=== PATIENT | male | born 1970 | race Hispanic/Latino ===

== ENCOUNTER 2018-02-24 08:17 | Inpatient (IN) | payer OTHER ==
[2018-02-22 12:02] LABS: BASOPHILS # (AUTO) 0.1 (0.0-0.1); BASOPHILS % 0.5 % (0.0-1.0); EOSINOPHILS # (AUTO) 0.1 (0.0-0.4); EOSINOPHILS % 0.9 % (0.0-6.0); HEMATOCRIT 46.7 % (38.2-49.6); HEMOGLOBIN 16.2 g/dL (14.0-18.0); LYMPHOCYTES # (AUTO) 3.3 (1.0-3.2); LYMPHOCYTES % 21.8 % (18.0-39.1); MEAN CORPUSCULAR HEMOGLOBIN 31.5 pg (28-32); MEAN CORPUSCULAR HGB CONC 34.7 g/dL (31-35); MEAN CORPUSCULAR VOLUME 90.7 fL (81-99); MONOCYTES # (AUTO) 0.8 (0.2-0.8); MONOCYTES % 5.3 % (4.4-11.3); NEUTROPHILS # (AUTO) 10.9 (2.1-6.9); PLATELET COUNT 368 x10e3/uL (140-360); RED BLOOD COUNT 5.15 x10e6/uL (4.3-5.7); RED CELL DISTRIBUTION WIDTH 12.4 % (11.7-14.4)
[2018-02-22 12:13] LABS: INR 1.05; PROTHROMBIN TIME 12.9 seconds (11.9-14.5)
[2018-02-22 12:21] LABS: ALANINE AMINOTRANSFERASE 24 IU/L (0-55); ALBUMIN 4.2 g/dL (3.5-5.0); ALBUMIN/GLOBULIN RATIO 1.3 (0.8-2.0); ALKALINE PHOSPHATASE 97 IU/L (40-150); ANION GAP 15.4 mmol/L (8-16); BLOOD UREA NITROGEN 13 mg/dL (7-26); BUN/CREATININE RATIO 17 (6-25); CALCIUM 10.1 mg/dL (8.4-10.2); CARBON DIOXIDE 25 mmol/L (22-29); CHLORIDE 105 mmol/L (98-107); CHOL/HDL RATIO 3.5 (3.9-4.7); CHOLESTEROL 152 MD/DL (0-199); CREATININE, SERUM 0.77 mg/dL (0.72-1.25); EST GLOMERULAR FILTRATION RATE > 60 ML/MIN (60-); GLUCOSE 104 mg/dL (74-118); HDL CHOLESTEROL 44 MG/DL (40-60); LDL CHOLESTEROL 68 MG/DL (60-130); POTASSIUM 4.4 mmol/L (3.5-5.1); SODIUM 141 mmol/L (136-145); TRIGLYCERIDES 200 MG/DL (0-149)
[2018-02-22 12:40] LABS: THYROID STIMULATING HORMONE 0.758 uIU/mL (0.350-4.940)
[~2018-02-24] VITALS: Ht 167.6 cm; Wt 70.8 kg
[2018-02-24] VITALS (26 sets, daily range): BP systolic 108–149; BP diastolic 54–77
[~2018-02-24 08:17] MED LIST: AMLODIPINE BESY10 MG PO; ASPIR 8181 MG PO; ATORVASTATIN CA20 MG PO; METFORMIN HCL500 MG PO
[2018-02-24] MEDS ORDERED: HEPARIN SOD (PORCINE) 1000 UNIT/ML 30ML ONE (09:17)
[2018-02-24] MEDS ORDERED: LIDOCAINE HCL 2% LOCAL 20 ML VIAL ONE (09:18)
[2018-02-24] MEDS ORDERED: VERAPAMIL HCL 2.5 MG/ML 2 ML VIAL ONE (09:18)
[2018-02-24] MEDS ORDERED: HEPARIN SOD/SOD CHLORIDE 2,000 ML ONE (09:18)
[2018-02-24] MEDS ORDERED: NITROGLYCERIN/D5W 200 MCG/ML 250 ML ONE (09:18)
[2018-02-24] MEDS ORDERED: IOPAMIDOL 370 MG/ML 200 ML INFUS..BTL INJ ONE (09:18)
[2018-02-24] MEDS ORDERED: ASPIRIN 325 MG TAB ONE (09:34)
[2018-02-24] MEDS ORDERED: FENTANYL CITRATE/PF 100MCG/2 ML INJ ONE (12:03)
[2018-02-24] MEDS ORDERED: MIDAZOLAM HCL 2 MG/2 ML VIAL ONE (12:03)
[2018-02-24] MEDS ORDERED: CLOPIDOGREL BISULFATE 75 MG TAB ONE ×2 (12:28→12:29)
[2018-02-24] MEDS ORDERED: DEXTROSE 50% SYRINGE 50 ML IV PRN (19:00)
[2018-02-24] MEDS ORDERED: ATORVASTATIN 40 MG TAB PO SCH ×2 (21:00)
[2018-02-24] MEDS ORDERED: INSULIN LISPRO 100 UNIT/1 ML 3ML VIAL SQ SCH (21:00)
[2018-02-24] MEDS ORDERED: ATORVASTATIN 20 MG TAB PO SCH (21:00)
[2018-02-24] MEDS: INSULIN LISPRO 100 UNIT/1 ML 3ML VIAL SQ SCH (21:09)
[2018-02-25] VITALS (17 sets, daily range): BP systolic 109–134; BP diastolic 53–79
[2018-02-25] MEDS: INSULIN LISPRO 100 UNIT/1 ML 3ML VIAL SQ SCH ×2 (08:27→11:30)
[2018-02-25] MEDS ORDERED: METOPROLOL SUCCINATE 25 MG TAB XL PO SCH ×2 (09:00)
[2018-02-25] MEDS ORDERED: CLOPIDOGREL BISULFATE 75 MG TAB PO SCH ×2 (09:00)
[2018-02-25] MEDS ORDERED: ASPIRIN 81 MG CHEW TAB PO SCH ×2 (09:00)
[2018-02-25] MEDS ORDERED: LOSARTAN POTASSIUM 25 MG TAB PO SCH ×2 (09:00)
--- NOTE | 2018-02-25 09:50 | Operative Report ---
DATE OF PROCEDURE: February 24, 2018 PROCEDURES PERFORMED 1. Left heart cardiac catheterization. 2. Selective coronary angiography. 3. Obtuse marginal drug-eluting stent percutaneous coronary intervention using a 2.25 x 12 Synergy drug-eluting stent. 4. Additional percutaneous coronary intervention to a 2nd target vessel, proximal left anterior descending, using a 2.5 x 12 Synergy drug-eluting stent. PROCEDURE INDICATIONS: Unstable angina. ESTIMATED BLOOD LOSS: Less than 15 mL. PROCEDURE COMPLICATIONS: None. PROCEDURE SUMMARY: After consent was obtained, the patient was prepped and draped in a sterile fashion. The right radial site was locally infiltrated with 2% lidocaine. Access was obtained and a 5-Slovenian outer diameter Slender sheath applied. Heparin to maintain an ACT of 250 was given, and 200 mcg of nitroglycerin was provided via the radial sheath. A TIG catheter was used for engagement of the left main and then the right coronary artery. Angiography was performed in multiple views. A pigtail catheter was used for left ventriculogram. An XB 3.5, no side hole, guide catheter, 6 Slovenian, was used for intervention. A Runthrough wire was positioned across the target lesion in the obtuse marginal and into the distal segment of the vessel. Predilatation of the obtuse marginal was performed with a 2.0 x 8 Emerge balloon to 12 atmospheres. This was followed by a 2.25 x 12 Synergy drug-eluting stent deployed across the target lesion. DIANE flow was 2 preprocedure and 3 postprocedure across the obtuse marginal. There was no flow-limiting dissection and no perforations and residual zero percent stenosis across the target obtuse marginal lesion at the end of the procedure. Attention was then redirected to the LAD. A Runthrough wire was repositioned into the distal LAD across the target lesion. Primary stenting with a 2.5 x 12 Synergy drug-eluting stent was performed to 18 atmospheres of deployment with excellent apposition. Preprocedure DIANE flow was 3. Post procedure, DIANE flow was 3. Preprocedure stenosis was 70 and postprocedure stenosis was zero. No flow-limiting dissections and no perforations. FINDINGS 1. LV pressure was 106/0 with end-diastolic pressure of 14. 2. The aortic pressure 106/63. 3. Left ventriculogram was reviewed with preserved left ventricular systolic function, no regional wall-motion abnormality, and left ventricular ejection fraction of 60% to 65%. 4. The left main is large in caliber with luminal irregularities within the LAD and circumflex. 5. The LAD is large in caliber, and the proximal segment has 70% stenosis. It gives a couple of diagonals and small septal perforators. 6. The circumflex gives a medium caliber obtuse marginal with 95% stenosis in the proximal segment and DIANE-3 flow. This was the target lesion to intervene on as described above. This segment of the circumflex was small caliber. 7. The right coronary artery is dominant. In the proximal segment, it has a 30% area of stenosis. It gives an RV marginal of small caliber and gives trivial RPDA and RPLV. CONCLUSIONS: Multivessel diffuse coronary artery disease with critical stenosis of the obtuse marginal and severe stenosis of proximal LAD, now status post proximal drug-eluting stent PCI using a 2.25 x 12 Synergy stent and drug-eluting stent PCI to the proximal LAD with a 2.5 x 12 Synergy stent with excellent angiographic results. RECOMMENDATIONS: Wean TR Band. IV fluids, aspirin, statin high potency, beta shaun, ARB, close monitoring as an outpatient. Preserved left ventricular systolic function noted on LV-gram today. Risk factor modifications including smoking cessation have been extensively discussed with the patient. Job#: [id number]
[2018-02-25] MEDS ORDERED: LOSARTAN POTASS25 MG PO (12:59)
[2018-02-25] MEDS ORDERED: PLAVIX75 MG PO (12:59)
--- NOTE | 2018-02-25 17:37 | Discharge Summary ---
Admission was 02/24/2018 under observation post PCI. ADMISSION DIAGNOSES 1. Unstable angina. 2. Hypertension. 3. Dyslipidemia. 4. Smoker. DISCHARGE DIAGNOSES 1. Unstable angina. 2. Hypertension. 3. Dyslipidemia. 4. Smoker. PROCEDURES PERFORMED: Left anterior descending drug-eluting stent percutaneous coronary intervention and obtuse marginal drug-eluting stent percutaneous coronary intervention. DISPOSITION: Discharged to home for self care. MEDICATIONS UPON DISCHARGE: Please see the medication reconciliation form. FOLLOWUP: With primary care physician in 2 weeks and with cardiology in 4 weeks. HOSPITALIZATION SUMMARY: The patient was placed in observation overnight after undergoing elective outpatient cardiac catheterization for unstable angina. He was found to have critical obtuse marginal stenosis status post drug-eluting stent PCI and a severe stenosis of proximal LAD that also underwent drug-eluting stent PCI successfully with excellent results. No complications post procedure. Dual antiplatelet therapy, statin, beta shaun and ARB all initiated. Measures discussed. EF preserved. ROSE TO MD Job#: [id number]
== END 2018-02-25 13:15 | disposition home or self-care (01) | DRG 247 ==
LOC: CATH LAB 08:17 → PACU V 16:33 → ICU 16:47
PROVIDERS: ADMIT Internal Medicine Cardiovascular Disease; ATTEND Internal Medicine Cardiovascular Disease
PROC: 027135Z Dilation of Coronary Artery, Two Arteries with Two Drug-eluting Intraluminal Devices, Percutaneous Approach (ICD-10-PCS; principal; 2018-02-25)
PROC: 4A023N7 Measurement of Cardiac Sampling and Pressure, Left Heart, Percutaneous Approach (ICD-10-PCS; 2018-02-25)
PROC: B3101ZZ Fluoroscopy of Thoracic Aorta using Low Osmolar Contrast (ICD-10-PCS; 2018-02-25)
PROC: B2111ZZ Fluoroscopy of Multiple Coronary Arteries using Low Osmolar Contrast (ICD-10-PCS; 2018-02-25)
PROC: B2151ZZ Fluoroscopy of Left Heart using Low Osmolar Contrast (ICD-10-PCS; 2018-02-25)
DX: I25.110 Atherosclerotic heart disease of native coronary artery with unstable angina pectoris (principal); F17.210 Nicotine dependence, cigarettes, uncomplicated; E78.5 Hyperlipidemia, unspecified; I10 Essential (primary) hypertension; E11.59 Type 2 diabetes mellitus with other circulatory complications
CPT/HCPCS: 36415; 80053; 80061; 82948; 83036; 84443; 85025; 85347; 85610; 85730; 92928; 92929; 93458; C1874; J1644; J2001; J2250; Q9967